=== PATIENT | male | born 1940 | race Caucasian/White ===

== ENCOUNTER 2022-03-09 10:15 | Emergency (ER) | payer MEDICARE, BC ==
[2022-03-09 11:02] LABS: #Basophils 0.1 10x3/uL (0.0-0.2); #Eosinphils 0.1 10x3/uL (0.0-0.5); #Monocytes 0.3 10x3/uL (0.0-1.1); #Neutrophils 5.5 10x3/uL (1.5-8.4); %Basophils 0.9 % (0.0-2.0); %Eosinophils 1.2 % (0.0-6.0); %Lymphocytes 14.4 % (18.0-47.0); %Monocytes 4.6 % (0.0-10.0); %Neutrophils 78.5 % (40.0-75.0); Hemoglobin 14.9 g/dL (13.5-17.5); Mean Corpuscular HGB CONC 33.3 g/dL (32.0-36.0); Mean Corpuscular Volume 90.1 fl (81.2-95.1); Mean Platelet Volume 12.4 fl (7.4-10.4); Platelet Count 104 10x3/uL (150-450); RBC Distribution Width 13.2 % (11.5-14.5); Red Blood Cell (RBC) Count 4.96 10x6/uL (4.32-5.72)
[2022-03-09 11:30] LABS: ALT (SGPT) 19 U/L (8-55); AST (SGOT) 21 U/L (5-34); Albumin 4.6 g/dL (3.4-4.8); Alkaline Phosphatase 55 U/L (40-110); Anion Gap 16 mmol/L (10-20); BUN (Urea Nitrogen) 20 mg/dL (8.4-25.7); Bilirubin, Total 0.9 mg/dL (0.2-1.2); Calc. Creatinine Clearance 0 mL/min (70-130); Calcium 9.9 mg/dL (7.8-10.44); Carbon Dioxide 22 mmol/L (23-31); Chloride 103 mmol/L (98-107); Estimated GFR 59; Globulin 3.5 g/dL (2.4-3.5); Glucose 153 mg/dL (83-110); Potassium 3.9 mmol/L (3.5-5.1); Protein, Total 8.1 g/dL (5.8-8.1); Sodium 137 mmol/L (136-145)
[2022-03-09 12:48] LABS: Large Platelets SLIGHT; Platelet Clumps SLIGHT
[2022-03-09 12:49] LABS: RBC Morphology Normal
[2022-03-09] MEDS ORDERED: Aspirin Chewable 81 MG TAB ONE (12:58)
[2022-03-09 14:33] LABS: Troponin I Less than 0.010 ng/mL (< 0.028)
== END 2022-03-09 17:10 | disposition left against medical advice (07) ==
LOC: CSHERS 10:15
DX: R42 Dizziness and giddiness (principal); I10 Essential (primary) hypertension
CPT/HCPCS: 36415; 70450; 80053; 84484; 85025; 93005

== ENCOUNTER 2023-06-01 08:05 | Outpatient (CLI) | payer MEDICARE, BC | END 2023-06-01 08:06 | disposition home or self-care (01) | LOC: CSHMRI 08:05 | PROVIDERS: ATTEND Internal Medicine | DX: R42 Dizziness and giddiness (principal); J32.8 Other chronic sinusitis | CPT/HCPCS: 70551 ==